=== PATIENT | male | born 1930 | race Native Hawaiian/Other Pacific Islander ===

== ENCOUNTER 2018-03-10 15:04 | Emergency (ER) | payer OTHER ==
[~2018-03-10] VITALS: Ht 167.6 cm; Wt 76.7 kg
[~2018-03-10 15:04] MED LIST: ALPHAGAN P0.1 % OP; AMLODIPINE BESYLATE PO; BUSP15TAB2 PO; BUSPIRONE10 MG PO; DICL50TA PO; DIVA250T2 PO; DIVALPROEX500 MG PO; ESCI10TA PO; FINA5TAB2 PO; FURO20TA67 PO; LATA0.00 OP; LIPITOR10 MG PO; METO25TA4 PO; MIRTAZAPINE7.5 MG PO; NAMENDA XR21 MG PO; NAMZARIC 28-101 CAP PO; OMEPRAZOLE20 M1 PO; OXCARBAZEPIN300 MG PO; POT CHLORIDE20 ME2 PO; QUET100T2 PO; QUET300T PO; SEROQUEL50 MG PO; TAMSULOSIN0.4 MG PO; TIROSINT50 MCG PO
[2018-03-10 15:35] LABS: PLATELET COUNT 241 K/uL (142-355)
[2018-03-10 15:46] LABS: POTASSIUM 3.4 mmol/L (3.6-5.2)
[2018-03-10 17:00] VITALS: BP 130/72; TEMP 97.6
[2018-03-10] MEDS ORDERED: METO25TA4 PO (18:24)
== END 2018-03-10 17:00 | disposition other institution (70) ==
LOC: ED 15:04
PROVIDERS: Emergency Medicine
DX: Z04.6 Encounter for general psychiatric examination, requested by authority (principal); F03.90 Unspecified dementia, unspecified severity, without behavioral disturbance, psychotic disturbance, mood disturbance, and anxiety; F20.2 Catatonic schizophrenia
CPT/HCPCS: 80053; 80061; 80307; 80320; 80329; 81000; 82607; 82746; 83036; 83735; 84100; 84134; 84439; 84443; 85027; 85610; 93005; 99285